=== PATIENT | female | born 1995 | race Caucasian/White ===

== ENCOUNTER 2017-01-14 07:48 | Emergency (ER) | payer OTHER ==
[~2017-01-14] VITALS: Wt 70.0 kg
[~2017-01-14 07:48] MED LIST: AMOX250C PO; PREN1TAB49 PO
[2017-01-14] MEDS ORDERED: SOD CHLORIDE 0.9% 1,000 ML IV STA (08:15)
[2017-01-14] MEDS ORDERED: DIPHENHYDRAMINE 50 MG INJ IV STA (08:15)
[2017-01-14] MEDS ORDERED: KETOROLAC 30 MG INJ IV STA (08:15)
[2017-01-14] MEDS ORDERED: METOCLOPRAMIDE 10 MG INJ IV STA (08:15)
[2017-01-14 08:45] LABS: BASOPHIL # 0.1 10^3/ul (0.0-0.1); BASOPHILS % 0.7 % (0.0-2.0); EOSINOPHILS % 0.1 % (0.0-7.0); HEMATOCRIT 44.8 % (37.0-47.0); HEMOGLOBIN 15.1 g/dl (12.0-16.0); LYMPHOCYTES # 2.4 10^3/ul (0.8-2.9); LYMPHOCYTES % 31.3 % (15.0-51.0); MEAN CORPUSCULAR HEMOGLOBIN 32.3 pg (29.0-33.0); MEAN CORPUSCULAR HGB CONC 33.7 g/dl (32.0-37.0); MEAN CORPUSCULAR VOLUME 95.9 fl (82.0-101.0); MEAN PLATELET VOLUME 9.8 fl (7.4-10.4); MONOCYTE # 0.5 10^3/ul (0.3-0.9); MONOCYTES % 6.3 % (0.0-11.0); NEUTROPHILS % 61.3 % (39.0-77.0); PLATELET COUNT 324 10^3/UL (140-415); RED BLOOD COUNT 4.67 10^6/ul (4.20-5.40); RED CELL DISTRIBUTION WIDTH 12.3 % (11.5-14.5); WHITE BLOOD COUNT 7.5 10^3/ul (4.8-10.8)
[2017-01-14 08:49] LABS: ADD UMIC YES; UR ASCORBIC ACID NEGATIVE (NEGATIVE); UR BACTERIA FEW /HPF (NONE SEEN); UR BILIRUBIN (Dip) NEGATIVE (NEGATIVE); UR BLOOD (Dip) 1+ mg/dL (NEGATIVE); UR CLARITY SLIGHTLY CLOUDY (CLEAR); UR COLOR YELLOW (YELLOW); UR GLUCOSE (Dip) NEGATIVE (NEGATIVE); UR KETONES (Dip) NEGATIVE (NEGATIVE); UR LEUKOCYTE ESTERASE (Dip) TRACE Leu/ul (NEGATIVE); UR NITRITE (Dip) NEGATIVE (NEGATIVE); UR RBC 2 /HPF (0-5); UR SPECIFIC GRAVITY (Dip) 1.009 (1.003-1.030); UR SQUAMOUS EPITHELIAL CELL MODERATE /HPF (FEW); UR TOTAL PROTEIN (Dip) NEGATIVE (NEGATIVE); UR UROBILINOGEN (Dip) NEGATIVE (NEGATIVE)
[2017-01-14 09:09] LABS: CALCIUM 9.5 mg/dl (8.4-10.2); CREATININE 0.64 mg/dl (0.44-1.00); POTASSIUM 4.3 mmol/L (3.5-5.1)
--- NOTE | 2017-01-14 09:11 | ERD ---
ER Documentation Chief Complaint Date/Time DATE: 01/14/17 TIME: 09:07 Chief Complaint HEADACHE, ONSET THIS AM, NO INJURY, NAUSEA HPI This is a 21-year-old female presents to the ER with a headache that started this morning. Headache is located in the front of her head and radiates to the back, like a headband. Patient states that pain is severe she describes it as sharp. She took 2 Advil however did not work. Patient denies any vomiting or diarrhea she does admit to some nausea. She admits to photophobia. She denies any vision loss or vision changes. She denies any fevers or chills. She has not had any recent cough or cold symptoms. She denies any neck pain or neck stiffness. ROS 12 point review of systems was done, all negative except per HPI. Medications Home Meds Active Scripts Ondansetron Hcl* (Zofran*) 4 Mg Tab, 4 MG PO Q4H Y for NAUSEA AND OR VOMITING for 5 Days, TAB Prov:NEELIMA DRAKE 01/14/17 Naproxen* (Naprosyn*) 500 Mg Tablet, 500 MG PO BID Y for PAIN AND/OR INFLAMMATION, #30 TAB Prov:NEELIMA DRAKE 01/14/17 Reported Medications Amoxicillin* (Amoxil*) 250 Mg Cap, PO QID 07/09/12 Vits W-Ca,Fe,Fa(<1MG) () 1 Tab Tablet, 1 TAB PO DAILY 06/14/12 Allergies Allergies: Coded Allergies: No Known Allergies (Verified Allergy, Unknown, 01/14/17) PMhx/Soc Medical and Surgical Hx: pt denies Medical Hx, pt denies Surgical Hx History of Surgery: No Anesthesia Reaction: No Hx Neurological Disorder: No Hx Respiratory Disorders: No Hx Cardiac Disorders: No Hx Psychiatric Problems: No Hx Miscellaneous Medical Probl: No Hx Alcohol Use: Yes (socially) Hx Substance Use: No Hx Tobacco Use: No Smoking Status: Never smoker Physical Exam Vitals Vital Signs Date Time Temp Pulse Resp B/P Pulse Ox O2 Delivery O2 Flow Rate FiO2 01/14/17 07:50 98.0 86 17 138/71 98 Physical Exam GENERAL: The patient is well developed and appropriate for usual state of health , in no apparent distress. HEENT: Atraumatic. Conjunctivae are pink. Pupils equal, round, and reactive to light. Extraocular muscles are grossly intact. Bilateral tympanic membranes are clear with no evidence of erythema, bulging or perforation. No sinus tenderness. NECK: C-spine is soft and supple. There is no cervical lymphadenopathy. CHEST: Clear to auscultation bilaterally. There are no rales, wheezes or rhonchi. HEART: Regular rate and rhythm. No murmurs, clicks, rubs or gallops. EXTREMITIES: Equal pulses bilaterally. There is no peripheral clubbing, cyanosis or edema. No focal swelling or erythema. Full range of motion. Grossly neurovascularly intact. NEURO: Alert and oriented. Cranial nerves II through XII are intact. Motor strength in all 4 extremities with 5/5 strength. Sensation grossly intact. Normal speech and gait. Negative Rhomberg. +2 DTRs. SKIN: There is no apparent rash or petechia. The skin is warm and dry. Result Diagram: 01/14/17 0830 01/14/17 0830 Results 24 hrs Laboratory Tests Test 01/14/17 08:25 01/14/17 08:30 Urine Color YELLOW Urine Clarity SLIGHTLY CLOUDY Urine pH 8.0 Urine Specific [place] 1.009 Urine Ketones NEGATIVEmg/dL Urine Nitrite NEGATIVEmg/dL Urine Bilirubin NEGATIVEmg/dL Urine Urobilinogen NEGATIVEmg/dL Urine Leukocyte Esterase TRACELeu/ul Urine Microscopic RBC 2/HPF Urine Microscopic WBC 2/HPF Urine Squamous Epithelial Cells MODERATE/HPF Urine Bacteria FEW/HPF Urine Hemoglobin 1+mg/dL Urine Glucose NEGATIVEmg/dL Urine Total Protein NEGATIVEmg/dl White Blood Count 7.510^3/ul Red Blood Count 4.6710^6/ul Hemoglobin 15.1g/dl Hematocrit 44.8% Mean Corpuscular Volume 95.9fl Mean Corpuscular Hemoglobin 32.3pg Mean Corpuscular Hemoglobin Concent 33.7g/dl Red Cell Distribution Width 12.3% Platelet Count 98280^3/UL Mean Platelet Volume 9.8fl Neutrophils % 61.3% Lymphocytes % 31.3% Monocytes % 6.3% Eosinophils % 0.1% Basophils % 0.7% Nucleated Red Blood Cells % 0.0/100WBC Neutrophils # (Manual) 4.610^3/ul Lymphocytes # 2.410^3/ul Monocytes # 0.510^3/ul Eosinophils # 0.010^3/ul Basophils # 0.110^3/ul Nucleated Red Blood Cells # 0.010^3/ul Sodium Level 140mmol/L Potassium Level 4.3mmol/L Chloride Level 105mmol/L Carbon Dioxide Level 27mmol/L Anion Gap 12 Blood Urea Nitrogen 7mg/dl Creatinine 0.64mg/dl Glucose Level 93mg/dl Calcium Level 9.5mg/dl Current Medications Medications (Trade) Dose Ordered Sig/Jeb Route PRN Reason Start Time Stop Time Status Last Admin Dose Admin Sodium Chloride (NS) 1,000 ml @ 1,000 mls/hr Q1H STAT IV 01/14/17 08:15 01/14/17 09:14 DC 01/14/17 08:31 Metoclopramide HCl (Reglan) 10 mg ONCE STAT IV 01/14/17 08:15 01/14/17 08:18 DC 01/14/17 08:30 Ketorolac Tromethamine (Toradol) 30 mg ONCE STAT IV 01/14/17 08:15 01/14/17 08:18 DC 01/14/17 08:30 Diphenhydramine HCl (Benadryl) 25 mg ONCE STAT IV 01/14/17 08:15 01/14/17 08:18 DC 01/14/17 08:31 Procedures/MDM Differential Diagnosis includes but is not limited to; tension headache, migraine headache, cluster headache, sinus headache, nonspecific febrile headache, trigeminal neurologia, subdural hematoma, subarachnoid bleeding, meningitis, encephalitis. Patient is neurologically intact with no focal neurological deficits. Patient's headache was made better with medications given in the ER. This is likely a migraine headache versus tension headache. Suspicion for a subdural hematoma or subarachnoid bleeding is low. Patient does not have any trauma and this is not the patient's worst headache of her life. Patient is afebrile and well-appearing she does not have any meningeal signs suspicion for meningitis or encephalitis is low. There is no evidence of infection or of any electrolyte abnormality. Patient will be sent home with naproxen and Zofran. She is to follow-up with her primary care doctor within 1- 2 days return to ER sooner if symptoms worsen. My medical decision making shared with the patient she understands and agrees with plan. Departure Diagnosis: Primary Impression: Headache Condition: Stable NEELIMA DRAKE Jan 14, 2017 09:11
[2017-01-14] MEDS ORDERED: NAPR-260 PO (09:26)
[2017-01-14] MEDS ORDERED: ONDA-43 PO (09:27)
== END 2017-01-14 09:42 | disposition home or self-care (01) ==
LOC: FTE 07:48
DX: R51 Headache (principal)
CPT/HCPCS: 36415; 80048; 81001; 85025; 96361; 96374; 96375; J1200; J1885; J2765; J7030; Z7502

== ENCOUNTER 2017-03-13 17:49 | Emergency (ER) | payer OTHER ==
[~2017-03-13] VITALS: Ht 165.1 cm; Wt 69.4 kg
[~2017-03-13 17:49] MED LIST changes: +NAPR-260 PO; +ONDA-43 PO
[2017-03-13 17:51] VITALS: Ht 165.1 cm; Wt 69.4 kg
[2017-03-13] MEDS ORDERED: ACETAMINOPHEN 500 MG TAB PO STA (18:44)
[2017-03-13] MEDS ORDERED: KETOROLAC 30 MG INJ IM STA (18:44)
[2017-03-13 19:36] LABS: ADD UMIC YES; UR ASCORBIC ACID NEGATIVE (NEGATIVE); UR BACTERIA FEW /HPF (NONE SEEN); UR BILIRUBIN (Dip) NEGATIVE (NEGATIVE); UR BLOOD (Dip) 2+ mg/dL (NEGATIVE); UR CLARITY CLEAR (CLEAR); UR COLOR YELLOW (YELLOW); UR GLUCOSE (Dip) NEGATIVE (NEGATIVE); UR KETONES (Dip) 1+ mg/dL (NEGATIVE); UR LEUKOCYTE ESTERASE (Dip) NEGATIVE Leu/ul (NEGATIVE); UR NITRITE (Dip) NEGATIVE (NEGATIVE); UR RBC 8 /HPF (0-5); UR SPECIFIC GRAVITY (Dip) 1.009 (1.003-1.030); UR SQUAMOUS EPITHELIAL CELL FEW /HPF (FEW); UR TOTAL PROTEIN (Dip) NEGATIVE (NEGATIVE); UR UROBILINOGEN (Dip) 2+ mg/dL (NEGATIVE)
[2017-03-13] MEDS ORDERED: ACET325T33 PO (19:44)
[2017-03-13] MEDS ORDERED: AMOX1TAB9 PO (19:44)
--- NOTE | 2017-03-13 20:29 | ERD ---
ER Documentation Chief Complaint Chief Complaint C/O BILATERAL FLANK AND GROINS PAIN WITH COLD, SORE THROAT FOR 3 DAYS HPI This is a 21-year-old female presenting to the emergency department complaining of fever, bilateral flank pain and sore throat for 3 days. Patient denies any nausea, vomiting, diarrhea, dysuria. Patient states that she has not taken any medications today ROS All systems reviewed and are negative except as per history of present illness. Medications Home Meds Active Scripts Acetaminophen* (Tylenol*) 325 Mg Tablet, 2 TAB PO Q4 Y for PAIN AND OR ELEVATED TEMP, #30 TAB Prov:PRABHAKAR MEHTA PA-C 03/13/17 Amoxicillin/Potassium Clav (Amox-Clav 500-125 mg Tablet) 500-125 mg Tab, 1 TAB PO BID for 10 Days, TAB Prov:PRABHAKAR MEHTA PA-C 03/13/17 Ondansetron Hcl* (Zofran*) 4 Mg Tab, 4 MG PO Q4H Y for NAUSEA AND OR VOMITING for 5 Days, TAB Prov:NEELIMA DRAKE 01/14/17 Naproxen* (Naprosyn*) 500 Mg Tablet, 500 MG PO BID Y for PAIN AND/OR INFLAMMATION, #30 TAB Prov:NEELIMA DRAKE 01/14/17 Reported Medications Amoxicillin* (Amoxil*) 250 Mg Cap, PO QID 07/09/12 Vits W-Ca,Fe,Fa(<1MG) () 1 Tab Tablet, 1 TAB PO DAILY 06/14/12 Allergies Allergies: Coded Allergies: No Known Allergies (Verified Allergy, Unknown, 01/14/17) PMhx/Soc Medical and Surgical Hx: pt denies Medical Hx, pt denies Surgical Hx History of Surgery: No Anesthesia Reaction: No Hx Neurological Disorder: No Hx Respiratory Disorders: No Hx Cardiac Disorders: No Hx Psychiatric Problems: No Hx Miscellaneous Medical Probl: No Hx Alcohol Use: Yes (socially) Hx Substance Use: No Hx Tobacco Use: No Smoking Status: Never smoker Physical Exam Vitals Vital Signs Date Time Temp Pulse Resp B/P Pulse Ox O2 Delivery O2 Flow Rate FiO2 03/13/17 17:51 100.1 110 20 119/64 99 Physical Exam Const: WDWN Head: Atraumatic Eyes: Normal Conjunctiva ENT: Normal External Ears, Nose TM clear. erythematous oropharynx with soft tonsillar exudates Neck: Full range of motion..~ No meningismus. Resp: Clear to auscultation bilaterally Cardio: Regular rate and rhythm, no murmurs Abd: Soft, non tender, non distended. Normal bowel sounds. No CVAT Skin: No petechiae or rashes Back: No midline or flank tenderness Ext: No cyanosis, or edema Neur: Awake and alert Psych: Normal Mood and Affect Results 24 hrs Laboratory Tests Test 03/13/17 19:00 Urine Color YELLOW Urine Clarity CLEAR Urine pH 6.0 Urine Specific [place] 1.009 Urine Ketones 1+mg/dL Urine Nitrite NEGATIVEmg/dL Urine Bilirubin NEGATIVEmg/dL Urine Urobilinogen 2+mg/dL Urine Leukocyte Esterase NEGATIVELeu/ul Urine Microscopic RBC 8/HPF Urine Microscopic WBC 3/HPF Urine Squamous Epithelial Cells FEW/HPF Urine Bacteria FEW/HPF Urine Hemoglobin 2+mg/dL Urine Glucose NEGATIVEmg/dL Urine Total Protein NEGATIVEmg/dl Current Medications Medications (Trade) Dose Ordered Sig/Jeb Route PRN Reason Start Time Stop Time Status Last Admin Dose Admin Acetaminophen (Tylenol Tab) 1,000 mg ONCE STAT PO 03/13/17 18:44 03/13/17 18:45 DC 03/13/17 19:04 Ketorolac Tromethamine (Toradol) 30 mg ONCE STAT IM 03/13/17 18:44 03/13/17 18:45 DC 03/13/17 19:06 Procedures/MDM This is a 21-year-old female presenting to emergency department with fever bilateral flank pain and sore throat for the past 2 days. Patient likely has strep pharyngitis. No evidence of peritonsillar or retropharyngeal abscess. No evidence of pyelonephritis. A urinalysis done did not show any evidence of infection. Patient went Tylenol, Toradol and I have reassessed her she is today feels a lot better. She stable to be discharged home with precautions to return emergency department for any worsening signs or symptoms Departure Diagnosis: Primary Impression: Pharyngitis Condition: Stable Patient Instructions: Fever Control (Adult), Pharyngitis, Strep (Presumed) Additional Instructions: FOLLOW UP WITH YOUR PRIMARY CARE PHYSICIAN TOMORROW.Return to this facility if you are not improving as expected. Take all medicines as directed. Return to this facility if you are not improving as expected. PRABHAKAR MEHTA PA-C Mar 13, 2017 20:29
== END 2017-03-13 20:07 | disposition home or self-care (01) ==
LOC: FTE 17:49
DX: J02.9 Acute pharyngitis, unspecified (principal)
CPT/HCPCS: 81001; 96372; J1885; Z7502; Z7610

== ENCOUNTER 2017-12-14 18:07 | Emergency (ER) | END 2017-12-14 20:56 | disposition home or self-care (01) ==